=== PATIENT | male | born 1945 | race Caucasian/White ===

== ENCOUNTER 2022-12-01 15:54 | Emergency (ER) | payer BC, MEDICARE ==
[~2022-12-01] VITALS: Ht 177.8 cm; Wt 100.0 kg
[~2022-12-01 15:54] MED LIST: ATOR20TA PO; CELE200C PO; CYAN250010 PO; DABI150C PO; ESCI20TA PO; FURO-150 PO; HYDR-4383 PO; KRIL1CAP19 PO; LUTE1CAP4 PO; MAGN400C PO; METO100T14 PO; MULT-1085 PO; POTA1POW PO; TEST90SO TD; TURM1POW PO; TURM500C7 PO
[2022-12-01] MEDS ORDERED: normal saline 1000ML IV soln IV ONE (18:10)
--- NOTE | 2022-12-01 18:10 | NUR ---
PT IS AAOX3 AND IS FOLLOWING COMMANDS. PT COULD NOT REMEMBER WHY HE WAS AT THE HOSPITAL. PT REPORTS THAT PT SEES A NEUROLOGIST FOR SEIZURE LIKE ACTIVITY LASTING UP TO 40 MINS.
--- NOTE | 2022-12-01 18:20 | NUR ---
PER [facility] PT HAD EKG IN AFTER TRIAGE BUT IT CANNOT BE LOCATED. SEAN PICKERING WILL ATTEMPT TO REPRINT IT AND RETAKE IT IF UNABLE TO.
[2022-12-01 18:41] LABS: BASOPHILS % (AUTO) 0.7 % (0-1); EOSINOPHILS # (AUTO) 0.1 X10'3 (0-0.9); HEMATOCRIT 35.2 % (42.0-52.0); HEMOGLOBIN 12.2 g/dl (14.0-17.9); LYMPHOCYTES # (AUTO) 0.9 X10'3 (1.1-4.8); LYMPHOCYTES % (AUTO) 14.8 % (21-51); MEAN CORPUSCULAR HEMOGLOBIN 32.7 PG (27.0-31.0); MEAN CORPUSCULAR HGB CONC 34.6 g/dL (33.0-36.5); MEAN CORPUSCULAR VOLUME 94.6 FL (78-98); MEAN PLATELET VOLUME 6.7 FL (7.4-10.4); MONOCYTES # (AUTO) 0.6 X10'3 (0-0.9); MONOCYTES % (AUTO) 10.3 % (2-12); NEUTROPHILS # (AUTO) 4.2 X10'3 (1.8-7.7); NEUTROPHILS % (AUTO) 73.2 % (42-75); PLATELET COUNT 265 X10'3 (140-440); RED BLOOD COUNT 3.72 X10'6 (4.70-6.10); RED CELL DISTRIBUTION WIDTH 13.8 % (11.5-14.5); WHITE BLOOD COUNT 5.8 X10'3 (4.5-11.0)
[2022-12-01 18:52] LABS: ALANINE AMINOTRANSFERASE 18 U/L (12-78); ALBUMIN 4.1 G/DL (3.4-5.0); ALBUMIN/GLOBULIN RATIO 1.1 (1.1-1.5); ALKALINE PHOSPHATASE 42 IU/L (46-116); ANION GAP 7 (8-16); ASPARTATE AMINO TRANSFERASE 20 U/L (10-37); BILIRUBIN,TOTAL 0.7 MG/DL (0.1-1.0); BLOOD UREA NITROGEN 17 MG/DL (7-18); BUN/CREATININE RATIO 13.9 (10.0-20.0); CALCIUM 9.6 MG/DL (8.5-10.1); CHLORIDE 92 MMOL/L (99-107); CREATININE 1.22 MG/DL (0.60-1.10); GLUCOSE 94 MG/DL (70-104); SODIUM 127 MMOL/L (135-145); TOTAL CARBON DIOXIDE 27.9 MMOL/L (24-32); TOTAL PROTEIN 7.8 G/DL (6.4-8.2); eGFR 58 ML/MIN
[2022-12-01 19:12] LABS: CLARITY,URINE CLEAR (Clear); COLOR,URINE YELLOW (Yellow); GLUCOSE, URINE NEGATIVE (Neg); KETONES,URINE NEGATIVE (Neg); LEUKOCYTE ESTERASE ,URINE NEGATIVE (Neg); NITRITES, URINE NEGATIVE (Neg); OCCULT BLOOD,URINE NEGATIVE (Neg); PROTEIN,URINE NEGATIVE (Neg); UROBILINOGEN,URINE 0.2 E.U/dL (0.2-1.0)
[2022-12-01 19:18] LABS: UA COLLECTION TYPE CLN CATCH MIDSTREAM
[2022-12-01 20:29] VITALS: BP 147/95
== END 2022-12-01 20:44 | disposition left against medical advice (07) ==
LOC: ER 15:55
DX: I48.91 Unspecified atrial fibrillation (principal); G93.40 Encephalopathy, unspecified
CPT/HCPCS: 36415; 71045; 80053; 80162; 81003; 83605; 83735; 83880; 84145; 84484; 85025; 87040; 93005; 96360; 99285; J7030